=== PATIENT | female | born 2000 | race Caucasian/White ===

== ENCOUNTER 2018-12-26 14:05 | Emergency (ER) | payer MEDICAID ==
--- NOTE | 2018-12-26 14:59 | Event Note ---
ED Screening Note Date of service: 12/26/18 Time: 14:57 ED Screening Note: 18 y/o female comes in for recheck of H/H. Had low hemoglobin. This initial assessment/diagnostic orders/clinical plan/treatment(s) is/are subject to change based on patients health status, clinical progression and re- assessment by fellow clinical providers in the ED. Further treatment and workup at subsequent clinical providers discretion. Patient/guardian urged not to elope from the ED as their condition may be serious if not clinically assessed and managed. Initial orders include:
[2018-12-26 15:23] LABS: Hematocrit 35.2 % (30.3-42.9); Hemoglobin 10.9 gm/dl (10.1-14.3); Mean Corpuscular HGB Conc 31 % (30-34); Mean Corpuscular Volume 75 fl (79-97); Platelet Count 443 K/mm3 (140-440); Red Blood Count 4.66 M/mm3 (3.65-5.03)
[2018-12-26 15:32] LABS: INR 1.12 (0.87-1.13)
[2018-12-26 15:46] LABS: Red Cell Distribution Width 29.2 % (13.2-15.2)
[2018-12-26 15:51] LABS: Partial Thromboplastin Time TNR Sec. (24.2-36.6)
[2018-12-26 16:34] LABS: Total Cells Counted 100
[2018-12-26 16:35] LABS: Basophils % (Manual) 0 % (0.0-1.8); Large Platelets 1+; Ovalocytes 1+; Platelet Estimate Consistent w Auto
[2018-12-26 16:36] LABS: Dimorphic RBC Yes
[2018-12-26 17:05] VITALS: BP 96/52
--- NOTE | 2018-12-26 17:17 | Emergency Department Report ---
ED General Adult HPI - General Chief complaint: Recheck/Abnormal Lab/Rx Stated complaint: DOC ORDERED TRANSFUSION Time Seen by Provider: 12/26/18 14:56 Source: patient Mode of arrival: Ambulatory Limitations: No Limitations - History of Present Illness Initial comments: Patient is a 18-year-old female who states that 3 ago she was told that her hemoglobin was 6-1/2. Patient was started on iron therapy. Patient states she has continued to have some shortness of breath when walking up stairs and with extreme exertion. Patient also states she has had some mild dizziness as well. Patient states she has a history of heavy menses. She states that 2 months ago she bled for approximately 3-4 weeks. Patient is currently not having vaginal bleeding at this time. Patient denies any exertional chest pain fevers chills, cold or congestion. - Related Data Allergies Allergy/AdvReac Type Severity Reaction Status Date / Time pineapple Allergy Rash Verified 12/26/18 14:07 ED Review of Systems ROS: Stated complaint: DOC ORDERED TRANSFUSION Other details as noted in HPI Comment: All other systems reviewed and negative ED Past Medical Hx - Past Medical History Previous Medical History?: No - Surgical History Past Surgical History?: No - Social History Smoking Status: Current Every Day Smoker Substance Use Type: None ED Physical Exam - General Limitations: No Limitations General appearance: alert, in no apparent distress - Head Head exam: Present: atraumatic, normocephalic - Eye Eye exam: Present: normal appearance - ENT ENT exam: Present: mucous membranes moist - Neck Neck exam: Present: normal inspection - Respiratory Respiratory exam: Present: normal lung sounds bilaterally. Absent: respiratory distress, wheezes, rales, rhonchi - Cardiovascular Cardiovascular Exam: Present: regular rate, normal rhythm, normal heart sounds. Absent: systolic murmur, diastolic murmur, rubs, gallop - GI/Abdominal GI/Abdominal exam: Present: soft, normal bowel sounds. Absent: distended, tenderness, guarding, rebound - Extremities Exam Extremities exam: Present: normal inspection - Back Exam Back exam: Present: normal inspection - Neurological Exam Neurological exam: Present: alert, oriented X3 - Psychiatric Psychiatric exam: Present: normal affect, normal mood - Skin Skin exam: Present: warm, dry, intact, normal color. Absent: rash ED Course Vital Signs 12/26/18 12/26/18 14:09 17:04 Temperature 98.5 F Pulse Rate 75 76 Respiratory 19 15 Rate Blood Pressure 103/64 Blood Pressure 96/52 [Right] O2 Sat by Pulse 100 100 Oximetry ED Medical Decision Making - Lab Data Result diagrams: 12/26/18 15:02 - Medical Decision Making Patient's hemoglobin is 10.9. Patient is to continue with her iron therapy and follow with her primary care physician. Critical care attestation.: If time is entered above; I have spent that time in minutes in the direct care of this critically ill patient, excluding procedure time. ED Disposition Clinical Impression: Symptomatic anemia Disposition: DC-01 TO HOME OR SELFCARE Is pt being admited?: No Does the pt Need Aspirin: No Condition: Stable Instructions: Iron Rich Diet (ED), Iron Deficiency Anemia (ED) Additional Instructions: Please continue with your iron therapy. Time of Disposition: 17:16
== END 2018-12-26 17:30 | disposition home or self-care (01) ==
LOC: ED 14:05
DX: D64.9 Anemia, unspecified (principal); F17.200 Nicotine dependence, unspecified, uncomplicated; Z91.013 Allergy to seafood
CPT/HCPCS: 36415; 85007; 85025; 85610; 85730; 86850; 86900; 86901